=== PATIENT | male | born 1965 | race African-American/Black ===

== ENCOUNTER 2025-06-04 13:01 | Inpatient (IN) | payer MEDICAID ==
[~2025-06-04] VITALS: Ht 185.4 cm; Wt 77.5 kg
[~2025-06-04 13:01] MED LIST: LORA-192 PO; OXYC15TA2 PO; PARO-149 PO; QUET300T2 PO
[2025-06-04] MEDS: SODIUM CHLORIDE 0.9% 1,000 ML IV ONE ×2 (13:46→20:34)
[2025-06-04] MEDS: PB/HYOSCY/ATR/SCOP/LIDO/MAALOX 55 ML BOTTLE PO ONE ×2 (13:47→18:57)
[2025-06-04] MEDS: PANTOPRAZOLE SODIUM 40 MG/VIAL IVP ONE (13:47)
[2025-06-04 13:57] LABS: PLATELET COUNT (AUTO) 348 K/uL (150-450); RED BLOOD CELL COUNT(AUTO) 5.64 MIL/uL (4.50-5.90); RED CELL DISTRIBUTION WIDTH 14.4 % (11.5-14.5); WHITE BLOOD COUNT (AUTO) 17.3 K/uL (4.5-11.0)
[2025-06-04 14:00] LABS: CALCIUM, TOTAL 10.4 mg/dL (8.8-10.5); CREATININE 2.40 mg/dL (0.60-1.30); GLOMERULAR FILTR. RATE CALC 33 mL/min (>60); GLUCOSE,RANDOM 113 mg/dL (70-110); SODIUM SERUM 145 mmol/L (136-145); UREA NITROGEN, BLOOD 19 mg/dL (7-18)
[2025-06-04 14:04] LABS: ASPARTATE AMINOTRANSFERASE 22.0 U/L (15-37); TOTAL PROTEIN, SERUM 9.0 g/dL (6.4-8.2)
[2025-06-04 14:10] LABS: TROPONIN I-HIGH SENSITIVITY 18 ng/L (<76)
[2025-06-04 17:00] LABS: APPEARANCE,URINE HAZY (CLEAR); GLUCOSE, URINE (UA) NEGATIVE (NEGATIVE); LEUKOCYTE ESTERASE ,URINE NEGATIVE (NEGATIVE); NITRATE,URINE NEGATIVE (NEGATIVE); OCCULT BLOOD,URINE NEGATIVE (NEGATIVE); SPECIFIC GRAVITIY, URINE 1.016 (1.003-1.030)
[2025-06-04] MEDS ORDERED: PANTOPRAZOLE SODIUM 40 MG/VIAL IVP ONE (19:00)
[2025-06-04] MEDS ORDERED: 0.9% SODIUM CHLORIDE 10 ML SYRINGE IVP PRN (19:45)
[2025-06-04] MEDS ORDERED: ONDANSETRON HCL 4 MG/2 ML VIAL IVP PRN (20:00)
[2025-06-04] MEDS ORDERED: ACETAMINOPHEN 325 MG TABLET PO PRN (20:00)
[2025-06-04] MEDS: CefTRIAXone 1 GM/DEXTROSE 50 ML IV ONE (20:33)
[2025-06-04] MEDS: SODIUM CHLORIDE 0.9% 2,300 ML IV ONE (20:34)
[2025-06-04] MEDS: DOCUSATE SODIUM 100 MG CAPSULE PO SCH (20:35)
[2025-06-04 22:42] VITALS: BP 126/72; PULSE 68; RESP 19; TEMP 97.5; O2SAT 99
[2025-06-04 23:42] LABS: PH,URINE DRUG SCREEN 5.0 (5.0-8.0)
[2025-06-04 23:47] LABS: ALCOHOL, URINE DRUG SCREEN NEGATIVE (NEGATIVE); AMPHET/METH SCREEN,URINE POSITIVE (NEGATIVE); BARBITURATE SCREEN, URINE NEGATIVE (NEGATIVE); CANNABINOID SCREEN,URINE POSITIVE (NEGATIVE); COCAINE SCREEN,URINE NEGATIVE (NEGATIVE); METHADONE SCREEN, URINE NEGATIVE (NEGATIVE)
[2025-06-04] MEDS: HEPARIN SODIUM,PORCINE 5,000 UNITS/ML VIAL SQ SCH (23:53)
[2025-06-05 00:54] LABS: LACTIC ACID 1.1 mmol/L (0.4-2.0)
[2025-06-05 03:43] VITALS: BP 114/83; PULSE 86; RESP 17; TEMP 97.7; O2SAT 97
[2025-06-05 06:50] LABS: CALCIUM, TOTAL 8.6 mg/dL (8.8-10.5); CREATININE 1.35 mg/dL (0.60-1.30); GLOMERULAR FILTR. RATE CALC > 60 mL/min (>60); GLUCOSE,RANDOM 88 mg/dL (70-110); SODIUM SERUM 138 mmol/L (136-145); UREA NITROGEN, BLOOD 19 mg/dL (7-18)
[2025-06-05 08:38] VITALS: BP 112/80; PULSE 86; RESP 18; TEMP 97.8; O2SAT 96
[2025-06-05 08:55] LABS: PLATELET COUNT (AUTO) 243 K/uL (150-450); RED BLOOD CELL COUNT(AUTO) 4.24 MIL/uL (4.50-5.90); RED CELL DISTRIBUTION WIDTH 13.6 % (11.5-14.5); WHITE BLOOD COUNT (AUTO) 10.6 K/uL (4.5-11.0)
[2025-06-05 11:51] VITALS: BP 105/84; PULSE 92; RESP 18; TEMP 97.7; O2SAT 99
[2025-06-05] MEDS ORDERED: BISACODYL 10 MG RECTAL RECTAL SUPPOSITORY PR PRN (14:15)
[2025-06-05] MEDS ORDERED: POLYETHYLENE GLYCOL 3350 17 GM PACKET PO ONE (14:15)
[2025-06-05] MEDS ORDERED: SENNOSIDES 8.6 MG TABLET PO ONE (14:15)
[2025-06-05] MEDS ORDERED: RINGERS SOLUTION,LACTATED 1,000 ML IV SCH ×2 (15:45→16:00)
[2025-06-05 16:08] VITALS: BP 116/87; PULSE 81; RESP 18; TEMP 97.8; O2SAT 99
== END 2025-06-05 16:25 | disposition left against medical advice (07) | DRG 251 ==
LOC: EMS 13:03 → EDH 19:53 → 5N 21:41
PROVIDERS: ADMIT Internal Medicine; ATTEND Internal Medicine
DX: R10.9 Unspecified abdominal pain (principal); R65.11 Systemic inflammatory response syndrome (SIRS) of non-infectious origin with acute organ dysfunction; N17.9 Acute kidney failure, unspecified; S52.591A Other fractures of lower end of right radius, initial encounter for closed fracture; F25.9 Schizoaffective disorder, unspecified; X58.XXXA Exposure to other specified factors, initial encounter; Z53.21 Procedure and treatment not carried out due to patient leaving prior to being seen by health care provider; F17.210 Nicotine dependence, cigarettes, uncomplicated; K21.9 Gastro-esophageal reflux disease without esophagitis; Z88.0 Allergy status to penicillin; Z88.6 Allergy status to analgesic agent; Z91.011 Allergy to milk products; Y93.89 Activity, other specified; Y92.89 Other specified places as the place of occurrence of the external cause; Y99.8 Other external cause status
CPT/HCPCS: 71045; 74176; 80048; 80076; 80307; 81003; 83605; 83690; 83735; 84145; 84484; 85025; 85610; 87040; 93005; 96361; 96365; 96375; 99285; J0696; J1644; J2470; J7030; 36415-L1; 36415-TC

== ENCOUNTER 2025-08-02 01:55 | Emergency (ER) | payer MEDICAID ==
[~2025-08-02] VITALS: Ht 185.4 cm; Wt 80.0 kg
[2025-08-02] MEDS: HYDROCODONE/ACETAMINOPHEN 5-325 MG TABLET PO ONE (02:28)
[2025-08-02] MEDS ORDERED: OXYC-38 PO (03:23)
[2025-08-02 04:00] VITALS: BP 133/89; PULSE 89; RESP 17; TEMP 97.8; O2SAT 100
== END 2025-08-02 05:21 | disposition home or self-care (01) ==
LOC: EMS 01:55
DX: S62.307A Unspecified fracture of fifth metacarpal bone, left hand, initial encounter for closed fracture (principal); S52.252A Displaced comminuted fracture of shaft of ulna, left arm, initial encounter for closed fracture; S22.32XA Fracture of one rib, left side, initial encounter for closed fracture; F17.210 Nicotine dependence, cigarettes, uncomplicated; K21.9 Gastro-esophageal reflux disease without esophagitis; Z79.899 Other long term (current) drug therapy; Z88.0 Allergy status to penicillin; Z88.6 Allergy status to analgesic agent; Z91.011 Allergy to milk products; W19.XXXA Unspecified fall, initial encounter; Y93.89 Activity, other specified; Y92.89 Other specified places as the place of occurrence of the external cause; Y99.8 Other external cause status
CPT/HCPCS: 71101; 99284; 73110-TC; 73130-TC; Z7502; Z7610